=== PATIENT | female | born 1960 | race Caucasian/White ===

== ENCOUNTER 2020-06-19 17:36 | Emergency (ER) | payer SELFPAY ==
--- NOTE | 2020-06-19 18:25 | RAD REPORT ---
EXAM DESCRIPTION: CT - Stone Protocol - 06/19/2020 6:17 pm CLINICAL HISTORY: Flank pain. FLANK PAIN COMPARISON: No comparisons TECHNIQUE: Axial images were obtained without oral or IV contrast. Lack of contrast limits solid org an and vascular assessment. The [id number] spans the entirety of the system partially obscuring uppermost abdomen and lung bases. Coronal reformatted images were obtained and reviewed. All CT scans are performed using dose optimization technique as appropriate and may include automated exposure control or mA/KV adjustment according to patient size. FINDINGS: The lower lung headley are clear. Cholecystectomy. Imaged portions of the liver and spleen show no suspicious findings on non-contrast imaging. The panc reas and adrenal glands are normal. No pathologic lymphadenopathy in the abdomen or pelvis. No urinary tract stones or obstructive uropathy. No bowel obstruction, free air, free fluid or abscess. Appendectomy.Scattered colonic diverticula not ed. No significant bony abnormality. Mild lumbosacral degenerative changes. IMPRESSION: No urinary tract stones or obstructive uropathy.
[2020-06-19 19:43] LABS: Urine Blood TRACE (NEG); Urine Glucose TRACE (NEG); Urine Protein NEGATIVE (NEG); Urine Specific Gravity 1.015 (1.005-1.030)
[2020-06-19] MEDS ORDERED: NA CHLORIDE 0.9% 1,000 ML ONE (19:54)
[2020-06-19] MEDS ORDERED: ONDANSETRON 4 MG/2 ML VIAL ONE ×2 (19:54→21:22)
[2020-06-19 20:08] LABS: BUN Blood Urea Nitrogen 9 mg/dL (7-18); Bicarbonate 26 mmol/L (21-32); Glucose Level 96 mg/dL (74-106); Sodium Level 140 mmol/L (136-145)
[2020-06-19 20:09] LABS: Absolute Lymphocytes (CBC) 2.9 K/uL (0.7-4.9); Basophils % 1.3 % (0-1.3); Hematocrit 42.8 % (36.0-45.0); Lymphocytes % 37.3 % (15.3-44.8); MPV 6.9 fL (7.6-11.3); RBC Red Blood Cell Count 4.77 M/uL (3.86-4.86)
--- NOTE | 2020-06-19 20:23 | ER ---
Nurse's Notes [facility] Name: Sherri Bryson Age: 60 yrs Sex: Female : 1960 Arrival Date: 06/19/2020 Time: 17:36 Bed 17 Private MD: Diagnosis: Urinary tract infection, site not specified Presentation: 06/19 17:53 Chief complaint: Patient states: RUQ pain radiating to the R flank x 4 days. R flank ca1 pain with urination. Reports headache, and nausea. Coronavirus screen: Client denies travel out of the [place] in the last 14 days. nausea, Client presents with at least one sign or symptom that may indicate coronavirus-19. Standard/surgical mask placed on the client. Provider contacted for isolation considerations. Ebola Screen: Patient negative for fever greater than or equal to 101.5 degrees Fahrenheit, and additional compatible Ebola Virus Disease symptoms Patient denies exposure to infectious person. Patient denies travel to an Ebola-affected area in the 21 days before illness onset. No symptoms or risks identified at this time. Initial Sepsis Screen: Does the patient meet any 2 criteria? No. Patient's initial sepsis screen is negative. Does the patient have a suspected source of infection? No. Patient's initial sepsis screen is negative. Risk Assessment: Do you want to hurt yourself or someone else? Patient reports no desire to harm self or others. Onset of symptoms was June 19, 2020. 17:53 Method Of Arrival: Ambulatory ca1 17:53 Acuity: DAVID 3 ca1 Historical: - Allergies: 17:56 No Known Allergies; ca1 - Home Meds: 17:56 None [Active]; ca1 - PMHx: 17:56 None; ca1 - PSHx: 17:56 Cholecystectomy; Appendectomy; Hysterectomy; ca1 - Immunization history:: Flu vaccine is up to date. - Social history:: Smoking status: Patient reports the use of cigarette tobacco products, smokes one-half pack cigarettes per day. Screenin:52 Abuse screen: Denies threats or abuse. Nutritional screening: No deficits noted. ll2 Tuberculosis screening: No symptoms or risk factors identified. Fall Risk None identified. Assessment: 19:50 General: Appears in no apparent distress. Behavior is calm, cooperative, appropriate ll2 for age. Pain: Complains of pain in right upper quadrant and right lower quadrant. Neuro: Level of Consciousness is awake, alert, obeys commands, Oriented to person, place, time, situation. Cardiovascular: Patient's skin is warm and dry. Respiratory: Airway is patent Respiratory effort is even, unlabored, Respiratory pattern is regular, symmetrical. GI: Abdomen is non-distended. : Reports urinary frequency. EENT: No signs and/or symptoms were reported regarding the EENT system. Derm: Skin is intact, is healthy with good turgor, Skin is dry, Skin is pink, warm \T\ dry. Musculoskeletal: Circulation, motion, and sensation intact. Range of motion: intact in all extremities. Vital Signs: 17:53 BP 133 / 73; Pulse 99; Resp 16 S; Temp 97(TE); Pulse Ox 97% on R/A; Weight 68.04 kg ca1 (R); Height 5 ft. 2 in. (157.48 cm) (R); Pain 6/10; 17:53 Body Mass Index 27.44 (68.04 kg, 157.48 cm) ca1 ED Course: 17:36 Patient arrived in ED. ag5 17:55 Triage completed. ca1 17:56 Arm band placed on right wrist. ca1 17:59 Lanny Lance FNP-C is PHCP. kb 17:59 Juwan Rodriguez MD is Attending Physician. kb 18:17 CT Stone Protocol In Process Unspecified. EDMS 19:27 Josephine Crawford RN is Primary Nurse. ll2 19:52 Patient has correct armband on for positive identification. Pulse ox on. NIBP on. ll2 19:52 Initial lab(s) drawn, by nh, sent to lab. Inserted saline lock: 20 gauge in right ll2 antecubital area, using aseptic technique. Blood collected. 21:13 Primary Nurse role handed off by Josephine Crawford RN ll2 21:13 PHCP role handed off by Lanny Lance FNP-C ll2 21:13 Josephine Crawford RN is Primary Nurse. ll2 21:15 No provider procedures requiring assistance completed. IV discontinued, intact, ll2 bleeding controlled, No redness/swelling at site. Pressure dressing applied. Administered Medications: 19:48 Drug: NS 0.9% 1000 ml Route: IV; Rate: 1000 ml; Site: right antecubital; ll2 21:15 Follow up: Response: No adverse reaction; IV Status: Completed infusion; IV Intake: ll2 1000ml 19:48 Drug: Zofran (Ondansetron) 4 mg Route: IVP; Site: right antecubital; ll2 21:15 Follow up: Response: No adverse reaction ll2 21:11 Drug: Rocephin 1 grams Route: IV; Rate: calculated rate; Site: left antecubital; ll2 21:15 Follow up: Response: No adverse reaction ll2 21:20 Follow up: Response: No adverse reaction; IV Status: Completed infusion ll2 21:11 Drug: Monroe 10 mg-325 mg 1 tabs Route: PO; ll2 21:14 Follow up: Response: Medication administered at discharge. ll2 21:14 Drug: Zofran (Ondansetron) 4 mg Route: IVP; Site: right antecubital; ll2 21:14 Follow up: Response: Medication administered at discharge. ll2 Intake: 21:15 IV: 1000ml; Total: 1000ml. ll2 Outcome: 20:23 Discharge ordered by . kb 21:12 Patient left the ED. ll2 21:15 Discharged to home ambulatory. ll2 21:15 Condition: stable 21:15 Discharge instructions given to patient, Instructed on discharge instructions, follow up and referral plans. medication usage, Demonstrated understanding of instructions, follow-up care, medications, Prescriptions given X 3. 21:16 Patient left the ED. ll2 Signatures: Dispatcher [employer] Lanny Gongora, FOSTER YOON-[place] Lobo RN RN [facility] Evangelist Tillman [facility] Josephine Crawford RN RN ll2
--- NOTE | 2020-06-19 20:23 | EDPHYS ---
Physician Documentation [facility] Name: Sherri Bryson Age: 60 yrs Sex: Female : 1960 Arrival Date: 06/19/2020 Time: 17:36 Bed 17 Private MD: ED Physician Juwan Rodriguez HPI: 06/19 20:19 This 60 yrs old Female presents to ER via Ambulatory with complaints of kb Nausea, Possible Kidney Stone. 20:19 The patient has not experienced similar symptoms in the past. The patient has not kb recently seen a physician. Pt states she has a sharp pain to right anterior lateral abd when she urinates. Reports small amounts and urinary frequency. Started 3 days ago. 20:20 The patient presents with urinary symptoms, dysuria, frequency. Onset: The kb symptoms/episode began/occurred 3 day(s) ago. Modifying factors: The symptoms are alleviated by nothing, the symptoms are aggravated by urinating. Associated signs and symptoms: Pertinent positives: dysuria, urinary frequency. Severity of symptoms: At their worst the symptoms were moderate, in the emergency department the symptoms are unchanged. Historical: - Allergies: 17:56 No Known Allergies; ca1 - Home Meds: 17:56 None [Active]; ca1 - PMHx: 17:56 None; ca1 - PSHx: 17:56 Cholecystectomy; Appendectomy; Hysterectomy; ca1 - Immunization history:: Flu vaccine is up to date. - Social history:: Smoking status: Patient reports the use of cigarette tobacco products, smokes one-half pack cigarettes per day. ROS: 20:18 Constitutional: Negative for fever, chills, and weight loss, Cardiovascular: Negative kb for chest pain, palpitations, and edema, Respiratory: Negative for shortness of breath, cough, wheezing, and pleuritic chest pain, MS/Extremity: Negative for injury and deformity, Skin: Negative for injury, rash, and discoloration, Neuro: Negative for headache, weakness, numbness, tingling, and seizure. 20:18 Abdomen/GI: Positive for abdominal pain. 20:18 : Positive for urinary symptoms, urinary frequency, small amounts, burning with urination, difficulty urinating. Exam: 20:18 Constitutional: This is a well developed, well nourished patient who is awake, alert, kb and in no acute distress. Head/Face: Normocephalic, atraumatic. Abdomen/GI: Soft, non-tender, with normal bowel sounds. No distension or tympany. No guarding or rebound. No evidence of tenderness throughout. Skin: Warm, dry with normal turgor. Normal color with no rashes, no lesions, and no evidence of cellulitis. MS/ Extremity: Pulses equal, no cyanosis. Neurovascular intact. Full, normal range of motion. 20:18 Respiratory: the patient does not display signs of respiratory distress, Respirations: normal. 20:18 Neuro: Orientation: is normal, to person, place, time \T\ situation. Mentation: is normal, able to follow commands, Motor: is normal, moves all fours, Sensation: is normal, Gait: not applicable Vital Signs: 17:53 BP 133 / 73; Pulse 99; Resp 16 S; Temp 97(TE); Pulse Ox 97% on R/A; Weight 68.04 kg ca1 (R); Height 5 ft. 2 in. (157.48 cm) (R); Pain 6/10; 17:53 Body Mass Index 27.44 (68.04 kg, 157.48 cm) ca1 MDM: 19:18 Patient medically screened. kb 20:19 Data reviewed: vital signs, nurses notes. Data interpreted: Pulse oximetry: on room air kb is 97 %. Interpretation: normal. Counseling: I had a detailed discussion with the patient and/or guardian regarding: the historical points, exam findings, and any diagnostic results supporting the discharge/admit diagnosis, lab results, radiology results, the need for outpatient follow up, a family practitioner, to return to the emergency department if symptoms worsen or persist or if there are any questions or concerns that arise at home. 06/19 17:59 Order name: Urine Microscopic Only; Complete Time: 20:50 kb 06/19 19:27 Order name: Basic Metabolic Panel; Complete Time: 20:09 kb 06/19 17:59 Order name: CT Stone Protocol; Complete Time: 18:27 kb 06/19 19:27 Order name: CBC with Diff; Complete Time: 20:15 kb 06/19 19:32 Order name: Urine Dipstick--Ancillary (enter results) kb 06/19 17:59 Order name: Urine Dipstick-Ancillary (obtain specimen); Complete Time: 19:49 kb 06/19 19:27 Order name: IV Saline Lock; Complete Time: 19:54 kb 06/19 19:27 Order name: Labs collected and sent; Complete Time: 19:54 kb Administered Medications: 19:48 Drug: NS 0.9% 1000 ml Route: IV; Rate: 1000 ml; Site: right antecubital; ll2 21:15 Follow up: Response: No adverse reaction; IV Status: Completed infusion; IV Intake: ll2 1000ml 19:48 Drug: Zofran (Ondansetron) 4 mg Route: IVP; Site: right antecubital; ll2 21:15 Follow up: Response: No adverse reaction ll2 21:11 Drug: Rocephin 1 grams Route: IV; Rate: calculated rate; Site: left antecubital; ll2 21:15 Follow up: Response: No adverse reaction ll2 21:20 Follow up: Response: No adverse reaction; IV Status: Completed infusion ll2 21:11 Drug: Eagar 10 mg-325 mg 1 tabs Route: PO; ll2 21:14 Follow up: Response: Medication administered at discharge. ll2 21:14 Drug: Zofran (Ondansetron) 4 mg Route: IVP; Site: right antecubital; ll2 21:14 Follow up: Response: Medication administered at discharge. 2 Disposition: 06/19/20 20:23 Discharged to Home. Impression: Urinary tract infection, site not specified. - Condition is Stable. - Discharge Instructions: Urinary Tract Infection, Adult, [id number]. - Prescriptions for Augmentin 875- 125 mg Oral Tablet - take 1 tablet by ORAL route every 12 hours for 10 days; 20 tablet. Pyridium 200 mg Oral Tablet - take 1 tablet by ORAL route every 8 hours for 3 days; 9 tablet. Tramadol 50 mg Oral Tablet - take 1 tablet by ORAL route every 8 hours as needed; 12 tablet. - Medication Reconciliation Form, Thank You Letter, Antibiotic Education, Prescription Opioid Use form. - Follow up: Emergency Department; When: As needed; Reason: Worsening of condition. Follow up: Private Physician; When: 2 - 3 days; Reason: Recheck today's complaints, Continuance of care, Re-evaluation by your physician. Addendum: 06/24/2020 15:55 Co-signature as Attending Physician, Juwan Rodriguez MD. r n Signatures: Dispatcher [employer] EDME Lanny Lance, ADVERTISING COORDINATOR-C ADVERTISING COORDINATOR-Ckb Juwan Rodriguez MD MD rn Sharri, [place], RN RN ca1 Josephine Crawford, ISAURO RN ll2 Corrections: (The following items were deleted from the chart) 06/19 20:20 20:18 : Positive for urinary symptoms, burning with urination, kb mark 21:12 20:23 06/19/2020 20:23 Discharged to Home. Impression: Urinary tract infection, site ll2 not specified. Condition is Stable. Forms are Medication Reconciliation Form, Thank You Letter, Antibiotic Education, Prescription Opioid Use. Follow up: Emergency Department; When: As needed; Reason: Worsening of condition. Follow up: Private Physician; When: 2 - 3 days; Reason: Recheck today's complaints, Continuance of care, Re-evaluation by your physician. 21:16 21:12 06/19/2020 20:23 Discharged to Home. Impression: Urinary tract infection, site ll2 not specified. Condition is Stable. Discharge Instructions: Urinary Tract Infection, Adult, [id number]. Prescriptions for Augmentin 875-125 mg Oral Tablet - take 1 tablet by ORAL route every 12 hours for 10 days; 20 tablet, Pyridium 200 mg Oral Tablet - take 1 tablet by ORAL route every 8 hours for 3 days; 9 tablet, Tramadol 50 mg Oral Tablet - take 1 tablet by ORAL route every 8 hours as needed; 12 tablet. and Forms are Medication Reconciliation Form, Thank You Letter, Antibiotic Education, Prescription Opioid Use. Follow up: Emergency Department; When: As needed; Reason: Worsening of condition. Follow up: Private Physician; When: 2 - 3 days; Reason: Recheck today's complaints, Continuance of care, Re-evaluation by your physician. ll2
[2020-06-19 20:38] LABS: Urine Bacteria <20 /HPF (<20); Urine RBC <5 /HPF (NONE SEEN)
[2020-06-19] MEDS ORDERED: CEFTRIAXONE/SWI 1gm 1 GM/10 ML SYR ONE (21:07)
[2020-06-19] MEDS ORDERED: HYDROCODONE/APAP 10/325 TAB ONE (21:07)
[2020-06-19 23:32] VITALS: BP 133/73; TEMP 97; O2SAT 97
== END 2020-06-19 21:16 | disposition home or self-care (01) ==
LOC: ER 17:36
DX: N39.0 Urinary tract infection, site not specified (principal); F17.210 Nicotine dependence, cigarettes, uncomplicated
CPT/HCPCS: 36415; 74176; 76377; 80048; 81003; 81015; 85025; 99284; J0696; J2405; J7030